=== PATIENT | female | born 1995 | race African-American/Black ===

== ENCOUNTER 2017-10-14 13:30 | Emergency (ER) | payer BC, OTHER ==
[~2017-10-14] VITALS: Ht 158.8 cm; Wt 56.0 kg
[2017-10-14 13:46] VITALS: Ht 158.8 cm; Wt 56.0 kg
[2017-10-14] MEDS ORDERED: BCPILLS PO (13:56)
[2017-10-14] MEDS ORDERED: SODIUM CHLORIDE 0.9% 1000ML 1,000 ML IV STA (13:56)
[2017-10-14] MEDS ORDERED: ACETAMINOPHEN 500 MG TAB PO STA (13:56)
[2017-10-14] MEDS ORDERED: KETOROLAC TROMETHAMINE 30 MG/ML VIAL IV STA (13:56)
[2017-10-14] MEDS ORDERED: DiphenhydrAMINE HCL 50 MG/ML VIAL IV STA (13:56)
--- NOTE | 2017-10-14 13:56 | EMERGENCY ROOM VISIT NOTE ---
History Report prepared by Maryjane: Zeus Alvarez Under the Supervision of: Dr. Angel Gillette M.D. First contact with patient: 13:49 Chief Complaint: FLU LIKE SX Stated Complaint: FEVER OF 103.2 History of Present Illness The patient is a 21 year old female who presents to the Emergency Room with complaints of persistent flu-like symptoms that started 3 days ago. She says that she has been having a fever with chills, a runny nose, body aches, a productive cough, and clogged sinuses. The patient states that she has been getting spells of dizziness that are worse with standing. She notes that she last took Advil yesterday, and she has been taking [place]. The patient denies any loss of consciousness, nausea, vomiting, urinary symptoms, or leg swelling. She notes no chance of . Source of History: patient Onset: 3 days ago Position: other (global - flu-like symptoms) Timing: other (persistent) Associated Symptoms: + fevers, + chills, + cough, No LOC, No nausea, No vomiting, No diarrhea, No urinary symptoms Note: Body aches, clogged sinuses. Denies leg swelling. Review of Systems See HPI for pertinent positives & negatives. A total of 10 systems reviewed and were otherwise negative. Past Medical & Surgical Medical Problems: (1) No chronic problems Family History No pertinent family history Social History Smoking Status: Never Smoker Smokeless Tobacco Use: No Marital Status: single Housing Status: lives with family Current/Historical Medications Scheduled Control Pills ( Control Pills), 1 TAB PO DAILY Allergies Coded Allergies: No Known Allergies (Unverified , 10/14/17) Physical Exam Vital Signs Date Time Temp Pulse Resp B/P (MAP) Pulse Ox O2 Delivery O2 Flow Rate FiO2 10/14/17 16:10 36.9 84 18 86/53 97 10/14/17 13:46 38.9 126 20 120/54 96 Room Air Physical Exam GENERAL: Patient is in mild distress and tired and dehydrated appearing. HEENT: No acute trauma, normocephalic atraumatic, mucous membranes moist, clear rhinorrhea bilateral nares no scleral icterus. NECK: No stridor, no adenopathy, no meningismus, trachea is midline. LUNGS: No dyspnea. Clear to auscultation and equal bilaterally. No wheeze, no rhonchi. HEART: Tachycardic rate and regular rhythm. No murmurs, rubs, gallops appreciated. ABDOMEN: Soft, nontender, bowel sounds positive, no masses appreciated, no peritonitis. BACK: No midline tenderness, no CVA tenderness EXTREMITIES: Normal motion all extremities, no cyanosis, no edema. NEUROLOGIC: Alert and oriented, no acute motor or sensory deficits, no focal weakness, cranial nerves grossly intact. SKIN: Warm to touch. No rash, no jaundice, no diaphoresis. Medical Decision & Procedures Medications Administered Medications (Trade) Dose Ordered Sig/Ryan Route Start Time Stop Time Status Last Admin Dose Admin Acetaminophen (Tylenol Tab) 1,000 mg NOW STAT PO 10/14/17 13:56 10/14/17 13:57 DC 10/14/17 14:13 1,000 MG Ketorolac Tromethamine (Toradol Inj) 30 mg NOW STAT IV 10/14/17 13:56 10/14/17 13:57 DC 10/14/17 14:14 30 MG Diphenhydramine HCl (Benadryl Inj) 50 mg NOW STAT IV 10/14/17 13:56 10/14/17 13:57 DC 10/14/17 14:13 50 MG Sodium Chloride 1,000 ml @ 999 mls/hr Q1H1M STAT IV 10/14/17 13:56 10/14/17 14:56 DC 10/14/17 13:56 999 MLS/HR ED Course 1351: The patient was evaluated in room C8. A complete history and physical exam was performed. 1527: Reevaluated the patient and she feels much better. Discussed results and discharge instructions: she verbalized understanding and agreement. The patient is ready for discharge. Medical Decision Differential: Viral, Pharyngitis, Pneumonia, Influenza, Meningitis, Sepsis, Bacteremia, UTI/Pyelonephritis, amongst other pathologies entertained. 21 yr old female with clearly flu-like illness ongoing for 3 days. Flu is extensive throughout area and she has classic symptoms thus I feel testing not required. She has no neck stiffness nor meningeal findings and no indication for LP at this time. Given above with improvement in symptoms. Lungs clear without hypoxia. She is not septic by exam and HR much improved with fluids and temp coming down. No UTI symptoms. Reviewed symptoms requiring RTED and I made clear rest and and fluids over next few days. The patient is well hydrated , happy, breathing comfortably and in no distress. They are not septic and are stable at discharge. She does not meet Tamiflu criteria. Medication Reconcilliation Current Medication List: was personally reviewed by me Blood Pressure Screening Patient's blood pressure: Normal blood pressure Impression Primary Impression: Influenza Scribe Attestation The scribe's documentation has been prepared under my direction and personally reviewed by me in its entirety. I confirm that the note above accurately reflects all work, treatment, procedures, and medical decision making performed by me. Departure Information Dispostion Home / Self-Care Referrals No Doctor, Assigned (PCP) Patient Instructions ED Flu, My [facility]
[2017-10-14 16:10] VITALS: BP 86/53; PULSE 84; TEMP 36.9; O2SAT 97
== END 2017-10-14 16:11 | disposition home or self-care (01) ==
LOC: C.EDB 13:31 → C.EDC 16:11
DX: J11.1 Influenza due to unidentified influenza virus with other respiratory manifestations (principal); Z79.3 Long term (current) use of hormonal contraceptives

== ENCOUNTER 2017-10-15 23:20 | Emergency (ER) | payer OTHER ==
[~2017-10-15] VITALS: Ht 158.8 cm; Wt 56.5 kg
[~2017-10-15 23:20] MED LIST: BCPILLS PO
[2017-10-15 23:24] VITALS: Ht 158.8 cm; Wt 56.5 kg
--- NOTE | 2017-10-15 23:57 | EMERGENCY ROOM VISIT NOTE ---
History First contact with patient: 23:38 Chief Complaint: FEVER Stated Complaint: FEVER History of Present Illness The patient is a 21 year old female who presents to the Emergency Room with complaints of a fever. The patient was seen here yesterday and diagnosed with influenza. She has had sore throat, body aches, mild cough, headache and fever. She rates her overall discomfort a 6/10. She states she has had a fever up to 103F today. She took her temperature 1.5 hours ago and states she had a fever of 103F. She states that nothing has been bringing her fever down. She took Tylenol 1.5 hours ago and prior to that took 400 mg Advil 10 hours ago. She denies any neck pain/symptoms, vomiting or diarrhea. Review of Systems A complete 10 point review of systems was reviewed with the patient with pertinent positives and negatives as per history of present illness. All else were negative. Past Medical/Surgical History Medical Problems: (1) No chronic problems Family History No pertinent family history Social History Smoking Status: Never Smoker Marital Status: single Housing Status: lives with family Current/Historical Medications Scheduled Control Pills ( Control Pills), 1 TAB PO DAILY Scheduled PRN Acetaminophen Tab (Tylenol), 650 MG PO Q4 PRN for Pain or Fever Physical Exam Vital Signs Date Time Temp Pulse Resp B/P (MAP) Pulse Ox O2 Delivery O2 Flow Rate FiO2 10/15/17 23:58 37.7 96 18 118/70 98 Room Air 10/15/17 23:24 37.7 126 18 112/70 98 Room Air Physical Exam VITALS: Vitals are noted on the nurse's note and reviewed by myself. Vital signs stable. GENERAL: This is a 21-year-old female, in no acute distress, nondiaphoretic, well-developed well-nourished. SKIN: The skin was without rashes. EARS: External auditory canals clear, tympanic membranes pearly skelton without erythema or effusion bilaterally. EYES: Pupils equal round and reactive to light and accommodation. NOSE: Patent, turbinates without inflammation or discharge. MOUTH: Mucous membranes moist. Tonsils are not enlarged. Pharynx mildly erythematous. NECK: Supple without nuchal rigidity. No lymphadenopathy. No meningismus. HEART: Regular rate and rhythm without murmurs gallops or rubs. LUNGS: Clear to auscultation bilaterally without wheezes, rales or rhonchi. ABDOMEN: Positive bowel sounds x 4. Soft, nontender. NEURO: Patient was alert and oriented to person place and time. Medical Decision & Procedures Medical Decision The patient was evaluated as above. She was seen here yesterday and diagnosed with influenza. The patient is concerned that nothing is resolving her fever, however she is not taking Tylenol and ibuprofen appropriately. I explained how to alternate these medications for better pain and fever control. Further conservative treatment was discussed with the patient. She will follow-up with [facility] as needed. She verbalized understanding of my assessment and treatment plan and was discharged home in good condition. Medication Reconcilliation Current Medication List: was personally reviewed by me Blood Pressure Screening Patient's blood pressure: Normal blood pressure Impression Primary Impression: Influenza Departure Information Dispostion Home / Self-Care Condition GOOD Referrals [facility] (PCP) Patient Instructions My [facility] Additional Instructions For pain/fever control, you can use the following [id number] medicines ( if >12 yo): - Extra strength (500mg/tab) Tylenol (acetaminophen) 2 tabs every 4-6 hours as needed. Do not exceed 12 tablets in a 24 hour period. Avoid taking more than 4 grams (4000 mg) of Tylenol per day. This includes any other sources of acetaminophen you may take on a regular basis. - Regular strength (200 mg/tab) Advil (ibuprofen) 3-4 tabs every 6 hours as needed. Do not exceed a dose of 3200 mg per day. You may alternate these medications for better control of your pain/fevers. For example, if you take Tylenol at 3:00, you may take ibuprofen at 6:00, Tylenol at 9:00, ibuprofen at 12:00, etc. Make sure to rest and drink plenty of fluids. Follow-up with [facility] this week for a recheck. Return to the emergency department with any worsening or new/concerning symptoms.
[2017-10-15 23:58] VITALS: BP 118/70; PULSE 96; TEMP 37.7; O2SAT 98
[2017-10-16] MEDS ORDERED: ACET325T96 PO (00:01)
== END 2017-10-16 00:04 | disposition home or self-care (01) ==
LOC: C.EDB 23:21
DX: J11.1 Influenza due to unidentified influenza virus with other respiratory manifestations (principal)

== ENCOUNTER 2017-12-15 20:06 | Emergency (ER) | payer OTHER ==
[~2017-12-15] VITALS: Ht 157.5 cm; Wt 56.2 kg
[~2017-12-15 20:06] MED LIST changes: +ACET-1693 PO
[2017-12-15 20:10] VITALS: TEMP 36.8; Ht 157.5 cm; Wt 56.2 kg
[2017-12-15] MEDS ORDERED: KETOROLAC TROMETHAMINE 60 MG/2 ML VIAL IM STA (20:27)
--- NOTE | 2017-12-15 22:21 | DIAGNOSTIC IMAGING REPORT ---
ULTRASOUND LEFT BREAST CLINICAL HISTORY: Left breast pain. Palpable lump after restarting control medication. COMPARISON STUDY: No priors. FINDINGS: Real-time, grayscale, and color flow sonography of the left breast is performed at the indicated site of interest. There is a 1.6 x 1.2 x 1.0 cm cystic focus identified at the 6:00 position. There is no surrounding hyperemia or significant internal complexity. IMPRESSION: There is a 1.6 cm cystic focus identified in the left breast at the indicated site of interest. This likely represents a simple cyst; however, sterility cannot be definitively characterized by ultrasound. Follow-up at the diagnostic breast center is recommended. Electronically signed by: Kelechi Caldwell M.D. 12/15/2017 10:20 PM Dictated Date/Time: 12/15/2017 10:15 PM
--- NOTE | 2017-12-15 22:46 | EMERGENCY ROOM VISIT NOTE ---
ED Visit Note First contact with patient: 20:14 CHIEF COMPLAINT: Left breast pain HISTORY OF PRESENT ILLNESS: This 21-year-old female patient presents to the emergency department, ambulatory, complaining of left breast pain which began approximately 2 days ago, 1 day after the patient reinitiated oral control pills. Patient states this has happened in the past, however the pain and fullness sensation were not nearly as prominent. She states she does have a history of a breast cyst, but is uncertain which breast this was located. She did have a previous ultrasound performed. The patient had been on OCP's which she self-discontinued in July, and states she did have some discomfort and soreness in her breasts, but it was bilateral and not nearly this extreme. She denies any drainage. She does have her nipples pierced, but states the pain is in the breast, not the nipples. She denies noticing any specific mass. She has taken no OTC medications. She denies recent illness or fever. She denies . She was recently on amoxicillin for a mouth infection, and finished this 2 days ago. She did not take her Sprintec today. REVIEW OF SYSTEMS: A 10 system review of systems was performed with positives and pertinent negatives listed in the history of present illness. All other systems were reviewed and are negative. ALLERGIES: None MEDICATIONS: Sprintec PMH: None SOCIAL HISTORY: The patient is a [employer] student. She lives locally with her roommates. She denies drug, alcohol, tobacco use. PHYSICAL EXAM: VITALS: Vitals are noted on the nurse's note and reviewed by myself. Vital signs stable. GENERAL: This is a 21-year-old white female, in no acute distress, nondiaphoretic, well-developed well-nourished. SKIN: The skin was without rashes, erythema, edema, or bruising. There is no tenting of the skin. No discoloration of the skin of the breasts. Capillary reflex less than 2 seconds. HEAD: Normocephalic atraumatic. NECK: Supple without nuchal rigidity. No lymphadenopathy. No thyromegaly. Cervical spine is nontender. No JVD. BREAST: There is significant tenderness on palpation of the left breast. There is a mobile, very tender cyst-like mass noted on the lateral, inferior aspect of the breast. There is no nipple drainage. There is no tenderness or mass noted in the right breast. HEART: Regular rate and rhythm without murmurs gallops or rubs. LUNGS: Clear to auscultation bilaterally without wheezes, rales or rhonchi. No dullness to percussion. No retractions or accessory muscle use. ABDOMEN: Positive bowel sounds x 4. Normal tympanic percussion. Soft, nontender, without masses or organomegaly. Samaniego sign negative. No guarding or rebound tenderness. MUSCULOSKELETAL: No muscle atrophy, erythema, or edema noted. Full range of motion without joint tenderness in all extremities. No tenderness to palpation. Normal gait. Strength 5/5 throughout. NEURO: Patient was alert and oriented to person place and time. Normal sensation to light and sharp touch. Deep tendon reflexes 2+ throughout. No focal neurological deficits. RADIOLOGY: ULTRASOUND LEFT BREAST CLINICAL HISTORY: Left breast pain. Palpable lump after restarting control medication. COMPARISON STUDY: No priors. FINDINGS: Real-time, grayscale, and color flow sonography of the left breast is performed at the indicated site of interest. There is a 1.6 x 1.2 x 1.0 cm cystic focus identified at the 6:00 position. There is no surrounding hyperemia or significant internal complexity. IMPRESSION: There is a 1.6 cm cystic focus identified in the left breast at the indicated site of interest. This likely represents a simple cyst; however, sterility cannot be definitively characterized by ultrasound. Follow-up at the diagnostic breast center is recommended. Electronically signed by: Kelechi Caldwell M.D. 12/15/2017 10:20 PM Dictated Date/Time: 12/15/2017 10:15 PM EMERGENCY DEPARTMENT COURSE: The patient was seen and evaluated as above. She was given 60 mg Toradol IM and did note improvement in her symptoms. Ultrasound of the left breast was performed and reviewed/interpreted by radiologist as above. I have a high suspicion for simple cyst, however did recommend very close follow-up with the patient's home primary care provider and consider possible referral to the surgeon locally for further evaluation. The patient was agreeable. She did request ultrasound images on a disc, and this was given to her prior to discharge. The patient was encouraged on the use of NSAIDs outpatient and I did recommend she discontinue the use of OCPs until evaluation by gynecology or a breast surgeon. The patient was agreeable. Discharge instructions reviewed, the patient was discharged home in good condition. I attest that I have personally reviewed the patient's current medication list. Patient was found to have normal blood pressure on screening and does not require follow-up. Differential diagnosis include cyst, abscess, malignancy, infection, , fibrocystic breasts, medication reaction, and others DIAGNOSIS: Left breast mass, left breast pain, OCP reaction The chart was completed utilizing [employer] Speech voice recognition software. Grammatical errors, random word insertions, pronoun errors, and incomplete sentences are an occasional consequence of this system due to software limitations, ambient noise, and hardware issues. Any formal questions or concerns about the content, text, or information contained within the body of this dictation should be directly addressed to the provider for clarification. Problem List Medical Problems: (1) No chronic problems Status: Chronic Current/Historical Medications Scheduled Control Pills ( Control Pills), 1 TAB PO DAILY Scheduled PRN Acetaminophen Tab (Tylenol), 650 MG PO Q4 PRN for Pain or Fever Allergies Coded Allergies: No Known Allergies (Unverified , 12/15/17) Vital Signs Date Time Temp Pulse Resp B/P (MAP) Pulse Ox O2 Delivery O2 Flow Rate FiO2 12/15/17 22:52 89 20 114/84 98 12/15/17 21:50 93 20 114/73 98 Room Air 12/15/17 20:10 36.8 114 20 117/77 98 Room Air Medications Administered Medications (Trade) Dose Ordered Sig/Ryan Route Start Time Stop Time Status Last Admin Dose Admin Ketorolac Tromethamine (Toradol Inj) 60 mg NOW STAT IM 12/15/17 20:27 12/15/17 20:28 DC 12/15/17 20:42 60 MG Departure Information Impression Primary Impression: Left breast mass Additional Impressions: Breast pain, left Oral contraceptives causing adverse effect in therapeutic use Dispostion Home / Self-Care Condition GOOD Referrals [facility] (PCP) Tano Li M.D. Patient Instructions Breast Cyst, ED Breast Mass Uncertain Cause, My [facility] Additional Instructions You were seen in the emergency department today for a breast mass and severe pain. As discussed, ultrasound is suspicious for possible cyst, however it is difficult to discern with this study. You should follow-up with a back joiner and/or breast surgeon for further evaluation and management. Ibuprofen(Motrin, Advil) may be used for fever or pain. Use 400 to 600mg every six hours as needed. Take with food. Drink plenty of water while taking this medication. Avoid using more than 2400mg in a 24 hour period. Do not use 2400mg per day for more than three consecutive days without physician direction. Prolonged inappropriate use can lead to stomach upset or ulcers. (AND/OR) Acetaminophen(Tylenol) may be used for fever or pain. Use 1000mg every six hours as needed. Avoid using more than 3000mg in a 24 hour period. You may consider warm, moist compresses to help ease the pain in the breast. I do recommend discontinuing the oral control pills, as I suspect they are causing your symptoms. Monitor for any signs of redness, increased pain, increased or worsening swelling, drainage, fevers, systemic symptoms, or other concerning symptoms. Return immediately to the emergency department for any of these symptoms. Follow-up with your primary care provider/back joiner in 2-3 days for recheck. Problem Qualifiers Additional Impressions: Oral contraceptives causing adverse effect in therapeutic use Encounter type: initial encounter Qualified Codes: T38.4X5A - Adverse effect of oral contraceptives, initial encounter
[2017-12-15 22:52] VITALS: BP 114/84; PULSE 89; O2SAT 98
== END 2017-12-15 22:53 | disposition home or self-care (01) ==
LOC: C.EDB 20:08 → C.EDC 22:53
DX: N63.20 Unspecified lump in the left breast, unspecified quadrant (principal); N64.4 Mastodynia; T38.4X5A Adverse effect of oral contraceptives, initial encounter; X58.XXXA Exposure to other specified factors, initial encounter; Z79.3 Long term (current) use of hormonal contraceptives

== ENCOUNTER 2017-12-25 23:28 | Emergency (ER) | payer OTHER ==
[2017-12-25 23:30] VITALS: TEMP 36.6
[2017-12-25] MEDS ORDERED: SODIUM CHLORIDE 0.9% 1000ML 1,000 ML IV STA (23:34)
[2017-12-25] MEDS ORDERED: MoRPHine SULFATE 10 MG/ML CARP/VIAL IV STA (23:34)
--- NOTE | 2017-12-25 23:35 | EMERGENCY ROOM VISIT NOTE ---
History Report prepared by Maryjane: Rob Liu Under the Supervision of: Dr. Angel Gillette M.D. First contact with patient: 23:31 Chief Complaint: PELVIC PAIN Stated Complaint: PELVIC/ABDOMINAL PAIN History of Present Illness The patient is a 22 year old female who presents to the Emergency Room with complaints of constant pelvic pain beginning 20 minutes ago. The patient states that she was having sex tonight when her pain started and notes that her partner saw that there was a large amount of blood following the onset of the patient's pain. She notes that she was here a few days ago for breast pain and here a few years ago for a ruptured ovarian cyst. She also complains of back pain and denies any diarrhea, headache, and vomiting. She reports that she recently stopped taking her control. Source of History: patient Onset: 20 minutes ago Position: other (pelvis) Timing: constant Associated Symptoms: + back pain, No headache, No vomiting, No diarrhea Note: The patient notes that there was a large amount of blood when her pain started. Review of Systems See HPI for pertinent positives & negatives. A total of 10 systems reviewed and were otherwise negative. Past Medical & Surgical Medical Problems: (1) Hemorrhagic ovarian cyst (2) No chronic problems Family History No pertinent family history No pertinent family history stated. Social History Smoking Status: Never Smoker Marital Status: single Housing Status: lives with family Occupation Status: student Current/Historical Medications Scheduled Control Pills ( Control Pills), 1 TAB PO DAILY Scheduled PRN Acetaminophen Tab (Tylenol), 650 MG PO Q4 PRN for Pain or Fever Oxycodone Immediate Rel Tab (Roxicodone Ir), 1-2 TAB PO Q4H PRN for Severe Pain Allergies Coded Allergies: No Known Allergies (Unverified , 12/26/17) Physical Exam Vital Signs Date Time Temp Pulse Resp B/P (MAP) Pulse Ox O2 Delivery O2 Flow Rate FiO2 12/26/17 03:06 72 16 96/53 99 12/26/17 02:24 76 16 109/69 98 Room Air 12/26/17 00:30 77 20 117/76 100 Room Air 12/25/17 23:30 36.6 136 30 128/92 100 Room Air Physical Exam GENERAL: Patient is severely upset, crying, and in moderate distress. EYES: No scleral icterus, unremarkable pupils. ENT: Mucous membranes moist, no nasal congestion. NECK: No masses appreciated, no meningismus, trachea is midline. RESPIRATORY: No dyspnea. Clear to auscultation and equal bilaterally. No wheeze , no rhonchi. CARDIOVASCULAR: Regular rate and rhythm. No murmurs, rubs, gallops appreciated. GASTROINTESTINAL: Abdomen soft, no peritonitis. Bowel sounds positive. No masses appreciated. Exquisitely tender over suprapubic region. BACK: No midline tenderness, no CVA tenderness EXTREMITIES: Normal motion all extremities, no cyanosis, no edema. NEUROLOGIC: Alert and oriented, no acute motor or sensory deficits, no focal weakness, cranial nerves grossly intact. SKIN: No rash, no jaundice, no diaphoresis. PELVIC: Mild amount of menstrual blood within vaginal vault coming from normal appearing cervix, no lacerations or abrasions appreciated, pain to palpation of bilateral adnexa. Medical Decision & Procedures ER Provider Diagnostic Interpretation: Radiology results and stated below per my review and radiologist interpretation: US PELVIC/ENDOVAG: The uterus demonstrates a bicornuate appearance as noted on examination 2015. The endometrial stripe is normal at 7mm. The right ovary measures 4.7 x 2.9 x 3.4cm. There is a hypoechoic structure with irregular margins and homogenous low level echoes measuring 2.6 x 1.2 x 2.1cm. This is new from previous exam. Primary consideration is a hemorrhagic cyst. Left ovary measures 3.3 x 2.2 x 1.9cm. Positive vascular flow to both ovaries noted. Small amount of free fluid noted posterior to the uterus and adjacent to the left adnexa. This may be considered physiologic in patients with menstrual age. Radiologist: Zeus Xiong MD. Laboratory Results 12/25/17 23:44 Red Blood Count 4.21, Mean Corpuscular Volume 88.6, Mean Corpuscular Hemoglobin 30.9, Mean Corpuscular Hemoglobin Concent 34.9, Mean Platelet Volume 9.9, Neutrophils (%) (Auto) 53.3, Lymphocytes (%) (Auto) 39.5, Monocytes (%) (Auto) 6.0, Eosinophils (%) (Auto) 0.8, Basophils (%) (Auto) 0.2, Neutrophils # (Auto) 4.71, Lymphocytes # (Auto) 3.50, Monocytes # (Auto) 0.53, Eosinophils # (Auto) 0.07, Basophils # (Auto) 0.02 12/25/17 23:44 Test 12/25/17 23:44 12/26/17 00:23 White Blood Count 8.85 K/uL (4.8-10.8) Red Blood Count 4.21 M/uL (4.2-5.4) Hemoglobin 13.0 g/dL (12.0-16.0) Hematocrit 37.3 % (37-47) Mean Corpuscular Volume 88.6 fL (80-100) Mean Corpuscular Hemoglobin 30.9 pg (25-34) Mean Corpuscular Hemoglobin Concent 34.9 g/dl (32-36) Platelet Count 293 K/uL (130-400) Mean Platelet Volume 9.9 fL (7.4-10.4) Neutrophils (%) (Auto) 53.3 % Lymphocytes (%) (Auto) 39.5 % Monocytes (%) (Auto) 6.0 % Eosinophils (%) (Auto) 0.8 % Basophils (%) (Auto) 0.2 % Neutrophils # (Auto) 4.71 K/uL (1.4-6.5) Lymphocytes # (Auto) 3.50 K/uL (1.2-3.4) Monocytes # (Auto) 0.53 K/uL (0.11-0.59) Eosinophils # (Auto) 0.07 K/uL (0-0.5) Basophils # (Auto) 0.02 K/uL (0-0.2) RDW Standard Deviation 40.1 fL (36.4-46.3) RDW Coefficient of Variation 12.6 % (11.5-14.5) Immature Granulocyte % (Auto) 0.2 % Immature Granulocyte # (Auto) 0.02 K/uL (0.00-0.02) Anion Gap 8.0 mmol/L (3-11) Estimated GFR () 111.1 Estimated GFR (Non- 95.9 BUN/Creatinine Ratio 17.3 (10-20) Calcium Level 9.4 mg/dl (8.5-10.1) Total Bilirubin 0.4 mg/dl (0.2-1) Direct Bilirubin 0.1 mg/dl (0-0.2) Aspartate Amino Transf (AST/SGOT) 26 U/L (15-37) Alanine Aminotransferase (ALT/SGPT) 42 U/L (12-78) Alkaline Phosphatase 59 U/L (45-117) Total Protein 8.6 gm/dl (6.4-8.2) Albumin 4.2 gm/dl (3.4-5.0) Lipase 149 U/L (73-393) Human Chorionic Gonadotropin, Qual NEG (NEG) Urine Color YELLOW Urine Appearance CLEAR (CLEAR) Urine pH 5.5 (4.5-7.5) Urine Specific [place] 1.027 (1.000-1.030) Urine Protein NEG (NEG) Urine Glucose (UA) NEG (NEG) Urine Ketones TRACE (NEG) Urine Occult Blood NEG (NEG) Urine Nitrite NEG (NEG) Urine Bilirubin NEG (NEG) Urine Urobilinogen NEG (NEG) Urine Leukocyte Esterase NEG (NEG) Urine WBC (Auto) 1-5 /hpf (0-5) Urine RBC (Auto) 0-4 /hpf (0-4) Urine Hyaline Casts (Auto) 1-5 /lpf (0-5) Urine Epithelial Cells (Auto) >30 /lpf (0-5) Urine Bacteria (Auto) NEG (NEG) Urine Test NEG (NEG) Laboratory results as reviewed by me. Medications Administered Medications (Trade) Dose Ordered Sig/Ryan Route Start Time Stop Time Status Last Admin Dose Admin Sodium Chloride 1,000 ml @ 999 mls/hr Q1H1M STAT IV 12/25/17 23:34 12/26/17 00:34 DC 12/25/17 23:51 999 MLS/HR Morphine Sulfate (MoRPHine SULFATE INJ) 6 mg NOW STAT IV 12/25/17 23:34 12/25/17 23:36 DC 12/25/17 23:49 6 MG Ondansetron HCl (Zofran Inj) 4 mg NOW STAT IV 12/25/17 23:47 12/25/17 23:48 DC 12/25/17 23:49 4 MG Morphine Sulfate (MoRPHine SULFATE INJ) 6 mg NOW STAT IV 12/26/17 00:22 12/26/17 00:23 DC 12/26/17 00:29 6 MG Ketorolac Tromethamine (Toradol Inj) 30 mg NOW STAT IV 12/26/17 02:16 12/26/17 02:17 DC 12/26/17 02:21 30 MG Oxycodone HCl (Roxicodone Immediate Rel 5MG Home Pack) 1 [facility] UD ONCE PO 12/26/17 03:00 12/26/17 03:01 DC 12/26/17 03:05 [facility] Course 2332: The patient was evaluated in room C8. A complete history and physical exam was performed. 2357: I reevaluated and updated the patient. She is feeling much better but still notes that she has some pelvic pressure. 0022 I performed a pelvic exam on the patient. She states that her pain is returning. She notes that she has a long history of ovarian cysts, but reports that her current symptoms are worse than usual. She states that she had STD testing done 5 days ago which came back normal. 0145: I rechecked the patient. She is feeling much better. She has some continued abdominal cramping periodically and is agreeable to some Toradol. 0257: I reevaluated and updated the patient. She feels comfortable going home and would like a note for work. 0303: Reevaluated the patient. Discussed results and discharge instructions: She verbalized understanding and agreement. The patient is ready for discharge. Medical Decision Differential: Appendicitis, Ovarian Torsion, PID, Tubo-ovarian Abscess, Intrauterine , Ectopic , Endometriosis, amongst other pathologies entertained. 22 yr old female arrives in quite some distress following sudden onset pain during intercourse. She is very uncomfortable thus given IV morphine which she required 2 rounds prior to feeling better (and then some IV toradol for cramping ). She has been on/off BC last 2 weeks and thus I suspect this lead to development cyst which by US is hemorrhagic and consistent with her symptoms. No evidence torsion. No evidence PID/TOA. RLQ is non-tender and symptoms not consistent with appendicitis. negative. She denies any STI concerns. HgB is OK and she is not hemorrhaging from uterus by exam. She is stable, feeling vastly better and wishes to go home. Will give Rx Oxy IR after discussing risks/benefits. Stressed [employer] follow up. [place] Drug Monitoring Program Search Results: no issues identified Medication Reconcilliation Current Medication List: was personally reviewed by me Blood Pressure Screening Patient's blood pressure: Normal blood pressure Blood pressure disposition: Did not require urgent referral Impression Primary Impression: Hemorrhagic cyst of right ovary Scribe Attestation The scribe's documentation has been prepared under my direction and personally reviewed by me in its entirety. I confirm that the note above accurately reflects all work, treatment, procedures, and medical decision making performed by me. Departure Information Dispostion Home / Self-Care Prescriptions Oxycodone Immediate Rel Tab (ROXICODONE IR) 5 Mg Tab 1-2 TAB PO Q4H Y for Severe Pain, #12 TAB Prov: Angel Gillette M.D. 12/26/17 Referrals [facility] (PCP) Forms HOME CARE DOCUMENTATION FORM, IMPORTANT VISIT INFORMATION, WORK / SCHOOL INSTRUCTIONS Patient Instructions ED Cyst Ovarian, My [facility] Additional Instructions You have received a narcotic pain medication prescription. These medications may cause drowsiness and should not be used with other sedative medications. Do not drive, drink alcohol, perform dangerous activities, nor make important decisions after taking these medications. nursing home use or inappropriate use may lead to addiction. It is important you follow up with [facility].
[2017-12-25] MEDS ORDERED: ONDANSETRON INJ 2 MG/ML 2 ML VIAL IV STA (23:47)
[2017-12-25] MEDS ORDERED: ONDANSETRON INJ 2 MG/ML 2 ML VIAL ONE (23:48)
[2017-12-25 23:51] LABS: BASO % 0.2 %; BASO ABS # 0.02 K/uL (0-0.2); EOS % 0.8 %; EOS ABS # 0.07 K/uL (0-0.5); HEMATOCRIT 37.3 % (37-47); IG# 0.02 K/uL (0.00-0.02); LYMPH % 39.5 %; MEAN CELL VOLUME 88.6 fL (80-100); MEAN CORPUSCULAR HEMOGLOBIN 30.9 pg (25-34); MEAN CORPUSCULAR HGB CONC 34.9 g/dl (32-36); MEAN PLATELET VOLUME 9.9 fL (7.4-10.4); MONO ABS # 0.53 K/uL (0.11-0.59); NEUT % 53.3 %; NEUT ABS # 4.71 K/uL (1.4-6.5); PLATELET COUNT 293 K/uL (130-400); RED CELL DISTRIBUTION WIDTH CV 12.6 % (11.5-14.5); RED CELL DISTRIBUTION WIDTH SD 40.1 fL (36.4-46.3); WHITE BLOOD COUNT 8.85 K/uL (4.8-10.8)
[2017-12-26 00:09] LABS: ALBUMIN 4.2 gm/dl (3.4-5.0); ALT/SGPT 42 U/L (12-78); AST/SGOT 26 U/L (15-37); BLOOD UREA NITROGEN 15 mg/dl (7-18); CALCIUM 9.4 mg/dl (8.5-10.1); CARBON DIOXIDE 25 mmol/L (21-32); CREATININE 0.87 mg/dl (0.60-1.20); GLUCOSE 122 mg/dl (70-99); LIPASE 149 U/L (73-393); POTASSIUM 3.3 mmol/L (3.5-5.1); SODIUM 136 mmol/L (136-145)
[2017-12-26 00:11] LABS: ALKALINE PHOSPHATASE 59 U/L (45-117); TOTAL PROTEIN 8.6 gm/dl (6.4-8.2)
[2017-12-26] MEDS ORDERED: MoRPHine SULFATE 10 MG/ML CARP/VIAL IV STA (00:22)
[2017-12-26] MEDS ORDERED: KETOROLAC TROMETHAMINE 30 MG/ML VIAL IV STA (02:16)
[2017-12-26] MEDS ORDERED: OXYC1TAB3 PO (02:45)
[2017-12-26] MEDS ORDERED: OXYCODONE IR HOME PACK PO ONE (03:00)
[2017-12-26 03:06] VITALS: BP 96/53; PULSE 72; O2SAT 99
--- NOTE | 2017-12-26 07:39 | DIAGNOSTIC IMAGING REPORT ---
PELVIC ULTRASOUND, TRANSABDOMINAL AND TRANSVAGINAL HISTORY: sudden onset pelvic pain s/p intercourse. h/o rup cyst 2 yrs ago COMPARISON: Pelvic ultrasound 04/18/2016. FINDINGS: Uterus: 7.9 x 4.8 x 2.7 cm. Endometrial stripe: 2 mm in thickness. Right ovary: Normal in size and demonstrates normal color flow. There is a 2.8 x 2.1 x 1.2 cm complex cyst demonstrating a thick rim and low level internal echoes. This favors a corpus luteum or hemorrhagic cyst. Left ovary: Normal in size and demonstrates normal color flow. Miscellaneous:Small amount of complex free fluid. IMPRESSION: 1. Normal uterus and left ovary. 2. Small amount of complex free fluid. This may be physiologic. 3. A 2.8 cm complex cyst within the right ovary. This favors a corpus luteum or hemorrhagic cyst. Electronically signed by: Aleksandr Wright M.D. 12/26/2017 7:38 AM Dictated Date/Time: 12/26/2017 7:36 AM
== END 2017-12-26 03:07 | disposition home or self-care (01) ==
LOC: C.EDC 23:28 → EDBD 23:28 → C.EDB 12-26 03:07
DX: N83.201 Unspecified ovarian cyst, right side (principal)